=== PATIENT | female | born 1995 | race Caucasian/White ===

== ENCOUNTER 2020-11-09 12:47 | Outpatient (CLI) | payer BC ==
[2020-11-09 23:08] LABS: SARS-CoV-2 PCR by NAA Not Detected (NotDetected)
== END 2020-11-09 12:48 | disposition home or self-care (01) ==
LOC: CSHLAB 12:47
PROVIDERS: ATTEND Obstetrics & Gynecology
DX: Z20.822 Contact with and (suspected) exposure to COVID-19 (principal)
CPT/HCPCS: 87635; U0003; U0005

== ENCOUNTER 2020-11-12 19:31 | Inpatient (IN) | payer BC ==
[2020-11-12] MEDS ORDERED: Carboprost 250 MCG/ML AMP IM PRN (20:09)
[2020-11-12] MEDS ORDERED: Diphenoxylate HCl/Atropine Tablet PO PRN ×2 (20:09)
[2020-11-12] MEDS ORDERED: Lidocaine 1% (PF) 30 ML VIAL SC PRN (20:09)
[2020-11-12] MEDS ORDERED: Ibuprofen 800 MG TAB PO PRN (20:09)
[2020-11-12] MEDS ORDERED: HYDROcodone/Acetaminophen 5/325 mg Tablet PO PRN ×2 (20:09)
[2020-11-12] MEDS ORDERED: Ondansetron PF 4 MG/2 ML Vial IVP PRN (20:09)
[2020-11-12] MEDS ORDERED: hydrALAZINE 20 MG/ML VIAL SLOW IVP PRN (20:09)
[2020-11-12] MEDS ORDERED: Acetaminophen 500 MG TAB PO PRN (20:09)
[2020-11-12] MEDS ORDERED: Butorphanol Tartrate 1 MG/ML VIAL SLOW IVP PRN (20:09)
[2020-11-12] MEDS ORDERED: Methylergonovine 0.2 MG/ML VIAL IM PRN (20:09)
[2020-11-12] MEDS ORDERED: Promethazine HCl 25 MG/ML VIAL IM PRN (20:09)
[2020-11-12] MEDS ORDERED: NS / Oxytocin 40 units/1000ml 1,000 ML IV PRN (20:09)
[2020-11-12 21:23] VITALS: BMI 33.6
[2020-11-12 21:48] LABS: Hemoglobin 11.6 g/dL (12.0-15.5); Mean Corpuscular HGB CONC 32.3 g/dL (32.0-36.0); Mean Corpuscular Hemoglobin 28.5 pg (27.0-33.0); Mean Corpuscular Volume 88.2 fl (81.6-98.3); Mean Platelet Volume 11.1 fl (7.4-10.4); Platelet Count 142 10x3/uL (150-450); RBC Distribution Width 18.5 % (11.5-14.5); Red Blood Cell (RBC) Count 4.07 10x6/uL (3.90-5.03); White Blood Cell (WBC) Count 8.1 10x3/uL (3.5-10.5)
[2020-11-12] MEDS: Misoprostol 100 MCG TAB VAG SCH (22:04)
[2020-11-12 22:20] LABS: Syphilis Antibody Nonreactive (Nonreactive); Syphilis Antibody Index 0.03 S/CO (<1.00 Non-Reactive)
[2020-11-12 22:21] LABS: Hep B Surf Ag Non-Reactive S/CO (NonReactive)
[2020-11-12 22:24] LABS: HBSAg Index 0.12 S/CO (0-0.99)
[2020-11-13] MEDS: Misoprostol 100 MCG TAB VAG SCH ×3 (01:47→23:58)
[2020-11-13] MEDS ORDERED: NS w/ Oxytocin 30 units 500 ML IV PRN (08:45)
[2020-11-13] MEDS ORDERED: NS w/ Oxytocin 30 units 500 ML IVPB SCH (08:45)
[2020-11-13] MEDS ORDERED: Fentanyl 4 mcg/Bup 0.1% Cadd 100 ML ONE (11:48)
[2020-11-13] MEDS ORDERED: Bicitra 30 ML UDCUP ONE (19:38)
[2020-11-13] MEDS ORDERED: Promethazine HCl 25 MG SUPP PR PRN (19:50)
[2020-11-13] MEDS ORDERED: Ondansetron PF 4 MG/2 ML Vial IVP PRN (19:50)
[2020-11-13] MEDS ORDERED: Ketorolac Tromethamine 30 MG/ML VIAL IVP PRN (19:50)
[2020-11-13] MEDS ORDERED: Naloxone HCl 0.4 mg/ml Vial IV PRN (19:50)
[2020-11-13] MEDS ORDERED: Naloxone HCl 0.4 mg/ml Vial IVP PRN ×2 (19:50)
[2020-11-13] MEDS ORDERED: Promethazine HCl 25 MG/ML VIAL IM PRN (19:50)
[2020-11-13] MEDS ORDERED: Ondansetron HCl/PF 4 MG/2 ML Vial IVP PRN (19:50)
[2020-11-13] MEDS ORDERED: Eucerin (Mineral Oil/Petrolatum,White) 30 gm Jar TOP PRN (19:50)
[2020-11-13] MEDS ORDERED: diphenhydrAMINE 50 MG/ML VIAL IVP PRN (19:50)
[2020-11-13] MEDS ORDERED: Lanolin Ointment 7 GM TUBE TOP PRN (19:51)
[2020-11-13] MEDS ORDERED: Adacel (T-DAP) 0.5 ML SYRINGE IM ONE (19:51)
[2020-11-13] MEDS ORDERED: Bisacodyl 10 MG SUPP PR PRN (19:51)
[2020-11-13] MEDS ORDERED: diphenhydrAMINE 25 MG CAP PO PRN (19:51)
[2020-11-13] MEDS ORDERED: hydrALAZINE 20 MG/ML VIAL SLOW IVP PRN (19:51)
[2020-11-13] MEDS ORDERED: Acetaminophen 325 MG TAB PO PRN (19:51)
[2020-11-13] MEDS ORDERED: Morphine PF 10 MG/10 ML VIAL ONE (19:57)
[2020-11-13] MEDS ORDERED: Communication Order-Pharmacy FS SCH (20:00)
[2020-11-13] MEDS ORDERED: Phenylephrine 10 MG/ML VIAL ONE (20:34)
[2020-11-13] MEDS ORDERED: PHENYLEPHRINE-NS 100 MCG/ML 10 ML SYRINGE ONE (20:34)
[2020-11-13] MEDS ORDERED: Oxytocin 10 UNITS/ML VIAL ONE (20:35)
[2020-11-13] MEDS ORDERED: NS w/ Oxytocin 30 units 500 ML ONE (23:08)
[2020-11-13] MEDS: Docusate Calcium (SURFAK) 240 MG CAP PO SCH (23:56)
[2020-11-13] MEDS ORDERED: Azithromycin 500 MG in Sodium Chloride 0.9% 250 ML 250 ML IVPB ONE (23:59)
[2020-11-14] MEDS: Acetaminophen 325 MG Suppository PR SCH ×2 (01:01→07:15)
[2020-11-14 06:09] LABS: Hemoglobin 8.9 g/dL (12.0-15.5); Mean Corpuscular HGB CONC 32.6 g/dL (32.0-36.0); Mean Corpuscular Volume 88.9 fl (81.6-98.3); Mean Platelet Volume 10.8 fl (7.4-10.4); Platelet Count 141 10x3/uL (150-450); RBC Distribution Width 18.4 % (11.5-14.5); Red Blood Cell (RBC) Count 3.07 10x6/uL (3.90-5.03); White Blood Cell (WBC) Count 15.4 10x3/uL (3.5-10.5)
[2020-11-14] MEDS: Ibuprofen 800 MG TAB PO SCH ×3 (07:16→21:57)
[2020-11-14] MEDS: Prenatal Vitamin 1 TAB PO SCH (09:01)
[2020-11-14] MEDS: Simethicone Chewable 80 MG TAB PO PRN ×2 (09:01→14:25)
[2020-11-14] MEDS: Docusate Calcium (SURFAK) 240 MG CAP PO SCH ×2 (09:01→21:57)
[2020-11-15] MEDS: Ibuprofen 800 MG TAB PO SCH ×3 (05:53→21:53)
[2020-11-15] MEDS: Prenatal Vitamin 1 TAB PO SCH (08:13)
[2020-11-15] MEDS: Docusate Calcium (SURFAK) 240 MG CAP PO SCH ×2 (08:13→21:54)
[2020-11-15] MEDS: HYDROcodone/Acetaminophen 5/325 mg Tablet PO PRN ×2 (09:54→19:30)
[2020-11-15 19:41] VITALS: TEMP 98.4
[2020-11-16] MEDS: Ibuprofen 800 MG TAB PO SCH (05:35)
[2020-11-16 08:51] VITALS: BP 107/67
[2020-11-16] MEDS: Prenatal Vitamin 1 TAB PO SCH (09:53)
[2020-11-16] MEDS: Docusate Calcium (SURFAK) 240 MG CAP PO SCH (09:53)
== END 2020-11-16 12:52 | disposition home or self-care (01) | DRG 788 ==
LOC: EDBD → CSHLD/OP 19:31 → CSHLD 19:37 → CSHPP 11-13 22:45
PROVIDERS: ADMIT Obstetrics & Gynecology; ATTEND Obstetrics & Gynecology
PROC: 10D00Z1 Extraction of Products of Conception, Low, Open Approach (ICD-10-PCS; principal; 2020-11-13)
DX: O64.0XX0 Obstructed labor due to incomplete rotation of fetal head, not applicable or unspecified (principal); O99.02 Anemia complicating childbirth; D50.0 Iron deficiency anemia secondary to blood loss (chronic); Z3A.40 40 weeks gestation of pregnancy; Z37.0 Single live birth
CPT/HCPCS: 36415; 51702; 85027; 86780; 86850; 86900; 86901; 87340; 87635; J0456; J0595; J0690; J2270; J2370; J2590; J7050; U0003; U0005